=== PATIENT | male | born 1960 | race African-American/Black ===

== ENCOUNTER 2017-07-07 11:14 | Day surgery (SDC) | payer OTHER ==
[2017-07-07] MEDS ORDERED: D5 LR 1000 ML 1,000 ML IV ONE (11:20)
[2017-07-07] MEDS ORDERED: DIPRIVAN VIAL 20 ML ONE (11:54)
[2017-07-07 12:39] VITALS: BP 125/75
== END 2017-07-07 12:40 | disposition home or self-care (01) ==
LOC: SURG1 11:14
PROVIDERS: ATTEND Internal Medicine Gastroenterology
PROC: 0DB68ZX Excision of Stomach, Via Natural or Artificial Opening Endoscopic, Diagnostic (ICD-10-PCS; principal; 2017-07-07 12:45)
PROC: 0DJ08ZZ Inspection of Upper Intestinal Tract, Via Natural or Artificial Opening Endoscopic (ICD-10-PCS; principal; 2017-07-07 12:45)
PROC: 0DB88ZX Excision of Small Intestine, Via Natural or Artificial Opening Endoscopic, Diagnostic (ICD-10-PCS; principal; 2017-07-07 12:45)
DX: R10.13 Epigastric pain (principal); K21.9 Gastro-esophageal reflux disease without esophagitis; K20.8 Other esophagitis; K44.9 Diaphragmatic hernia without obstruction or gangrene; K25.9 Gastric ulcer, unspecified as acute or chronic, without hemorrhage or perforation
CPT/HCPCS: A4217; J3490; J7120